=== PATIENT | male | born 1955 | race Caucasian/White ===

== ENCOUNTER 2022-02-18 08:54 | Observation (INO) | payer MEDICARE, BC ==
[2022-02-18 12:11] LABS: #Monocytes 0.5 10x3/uL (0.0-1.1); #Neutrophils 4.8 10x3/uL (1.5-8.4); %Basophils 0.6 % (0.0-2.0); %Eosinophils 0.6 % (0.0-6.0); %Lymphocytes 13.1 % (18.0-47.0); %Monocytes 8.3 % (0.0-10.0); %Neutrophils 77.1 % (40.0-75.0); Hemoglobin 16.1 g/dL (13.5-17.5); Mean Corpuscular HGB CONC 33.5 g/dL (32.0-36.0); Mean Corpuscular Volume 92.5 fl (81.2-95.1); Mean Platelet Volume 9.5 fl (7.4-10.4); Platelet Count 228 10x3/uL (150-450); RBC Distribution Width 13.7 % (11.5-14.5); Red Blood Cell (RBC) Count 5.19 10x6/uL (4.32-5.72); White Blood Cell (WBC) Count 6.3 10x3/uL (3.5-10.5)
[2022-02-18 12:18] LABS: Bilirubin Neg (Negative); Blood, Urine Negative (Negative); Clarity Clear (Clear); Glucose, Urine (Dipstick) >=1000 mg/dL (Negative); Ketone, Urine Negative (Negative); Leukocyte Negative (Negative); Nitrite Negative (Negative); Protein, Urine (Dipstick) Negative (Neg-Trace); Specific Gravity, Urine 1.005 (1.002-1.036); Urobilinogen Normal mg/dL (Less than 2)
[2022-02-18 12:19] LABS: INR-International Normal Ratio 0.9; Prothrombin Time 10.4 sec (9.5-12.1)
[2022-02-18 12:35] LABS: Anion Gap 15 mmol/L (10-20); BUN (Urea Nitrogen) 19 mg/dL (8.4-25.7); Calc. Creatinine Clearance 0 mL/min (70-130); Calcium 9.6 mg/dL (7.8-10.44); Carbon Dioxide 25 mmol/L (23-31); Chloride 104 mmol/L (98-107); Glucose 137 mg/dL (80-115); Potassium 5.2 mmol/L (3.5-5.1); Sodium 139 mmol/L (136-145)
[2022-02-18 14:52] VITALS: BMI 29.0
[2022-02-18 19:01] LABS: SARS-CoV-2 PCR by NAA Not Detected (NotDetected)
[2022-02-23] MEDS ORDERED: ceFAZolin (BATCH) 2 GM/100 ML BAG ONE (07:27)
[2022-02-23] MEDS ORDERED: Sodium Chloride 0.9% 100 ML ONE (07:35)
[2022-02-23] MEDS ORDERED: Tranexamic Acid 1,000 MG/10 ML VIAL ONE ×2 (07:35→11:49)
[2022-02-23] MEDS ORDERED: Vancomycin HCl 1.5 GM in Sodium Chloride 0.9% 250 ML 300 ML IVPB SCH ×2 (07:45→21:00)
[2022-02-23] MEDS ORDERED: Vancomycin 1.5 GRAM/300 ML BAG 1.5 GM in Premix Bag 1 BAG IVPB SCH (07:45)
[2022-02-23] MEDS ORDERED: Fentanyl 100 MCG/2 ML VIAL ONE ×3 (08:46→12:19)
[2022-02-23] MEDS ORDERED: Midazolam HCl 2 mg/2 ml Vial ONE (08:46)
[2022-02-23] MEDS ORDERED: Ropivacaine 0.5% HCl/PF (150 MG/30 ML VIAL) ONE ×2 (09:31→09:42)
[2022-02-23] MEDS ORDERED: Dexamethasone 20 MG/5 ML VIAL ONE (09:42)
[2022-02-23] MEDS ORDERED: ePHEDrine 50 MG/ML VIAL ONE (09:42)
[2022-02-23] MEDS ORDERED: Ondansetron PF 4 MG/2 ML Vial ONE (09:42)
[2022-02-23] MEDS ORDERED: PHENYLEPHRINE-NS 100 MCG/ML 10 ML SYRINGE ONE (09:42)
[2022-02-23] MEDS ORDERED: PROPOFOL 200 MG/20 ML VIAL ONE (09:42)
[2022-02-23] MEDS ORDERED: Lidocaine 1% PF 5 ML VIAL ONE (09:42)
[2022-02-23] MEDS ORDERED: Ketorolac Tromethamine 30 MG/ML VIAL ONE (09:42)
[2022-02-23] MEDS ORDERED: traMADol HCl 50 MG TAB PO PRN ×2 (09:45)
[2022-02-23] MEDS ORDERED: HYDROcodone/Acetaminophen 10/325 mg Tablet PO PRN (09:45)
[2022-02-23] MEDS ORDERED: Promethazine HCl 25 MG/ML VIAL IM PRN ×3 (09:45→11:53)
[2022-02-23] MEDS ORDERED: Ondansetron PF 4 MG/2 ML Vial IVP PRN ×2 (09:45→10:01)
[2022-02-23] MEDS ORDERED: Ropivacaine 0.2% 550 ML 550 ML NERVE BLCK SCH (09:45)
[2022-02-23] MEDS ORDERED: Zolpidem Tartrate 5 MG TAB PO PRN ×2 (09:45→10:01)
[2022-02-23] MEDS ORDERED: Fentanyl 100 MCG/2 ML VIAL SLOW IVP PRN (09:46)
[2022-02-23] MEDS ORDERED: Acetaminophen 325 MG TAB PO PRN (10:01)
[2022-02-23] MEDS ORDERED: diphenhydrAMINE 25 MG CAP PO PRN (10:01)
[2022-02-23] MEDS ORDERED: Tranexamic Acid 1,000 MG in Sodium Chloride 0.9% 100 ML IVPB SCH (10:15)
[2022-02-23] MEDS ORDERED: HYDROmorphone 2 MG/ML VIAL ONE (10:20)
[2022-02-23] MEDS ORDERED: Ondansetron HCl/PF 4 MG/2 ML Vial IVP PRN (11:53)
[2022-02-23] MEDS ORDERED: Promethazine HCl 25 MG/ML VIAL IVPB PRN (11:53)
[2022-02-23] MEDS: Sodium Chloride 0.9% 1,000 ML IV SCH ×2 (14:01→21:58)
[2022-02-23] MEDS: Ketorolac Tromethamine 30 MG/ML VIAL IVP SCH ×2 (14:32→20:43)
[2022-02-23] MEDS ORDERED: HumaLOG 300 UNITS/3 ML VIAL SC PRN (15:16)
[2022-02-23] MEDS ORDERED: Dextrose 5% in Water 1,000 ML IV PRN (15:16)
[2022-02-23] MEDS ORDERED: Ondansetron ODT 4 MG TAB PO PRN (15:16)
[2022-02-23] MEDS ORDERED: Dextrose 50% Abboject 50 ML SYRINGE SLOW IVP PRN (15:16)
[2022-02-23] MEDS ORDERED: Lorazepam 2 MG/ML VIAL IM PRN (15:16)
[2022-02-23] MEDS ORDERED: Lorazepam 1 MG TAB PO PRN (15:16)
[2022-02-23] MEDS ORDERED: Pseudoephedrine HCl 30 MG TAB PO PRN (15:20)
[2022-02-23] MEDS ORDERED: Polyethylene Glycol 3350 17 GM Packet PO PRN (15:23)
[2022-02-23] MEDS ORDERED: Docusate 100 MG CAP PO PRN (15:23)
[2022-02-23] MEDS ORDERED: Electrolyte Replacement Protocol 1 EACH FS PRN (15:30)
[2022-02-23] MEDS: Lorazepam 1 MG TAB PO SCH ×2 (17:09→21:59)
[2022-02-23] MEDS: CEFAZOLIN 2 GM, Admixture Fee 1 EACH in Sodium Chloride 0.9% 100 ML IVPB SCH (18:15)
[2022-02-23] MEDS: HYDROcodone/Acetaminophen 10/325 mg Tablet PO PRN (19:01)
[2022-02-23] MEDS: Senokot S 8.6-50 MG TAB PO SCH (20:43)
[2022-02-23] MEDS: Ferrous Gluconate 324 MG TAB PO SCH (20:43)
[2022-02-23] MEDS: Aspirin 81 mg Enteric Coated Tablet PO SCH (20:43)
[2022-02-24] MEDS: Ketorolac Tromethamine 30 MG/ML VIAL IVP SCH ×4 (00:09→12:00)
[2022-02-24] MEDS: CEFAZOLIN 2 GM, Admixture Fee 1 EACH in Sodium Chloride 0.9% 100 ML IVPB SCH (00:09)
[2022-02-24] MEDS: Lorazepam 1 MG TAB PO SCH (03:43)
[2022-02-24] MEDS: HYDROcodone/Acetaminophen 10/325 mg Tablet PO PRN ×3 (04:54→12:48)
[2022-02-24] MEDS: Sodium Chloride 0.9% 1,000 ML IV SCH (06:28)
[2022-02-24 06:31] LABS: Hemoglobin 12.3 g/dL (14.0-18.0); Mean Corpuscular HGB CONC 32.4 g/dL (32.0-36.0); Mean Corpuscular Hemoglobin 31.5 pg (27.0-31.0); Mean Corpuscular Volume 97.1 fL (78.0-98.0); Mean Platelet Volume 7.1 fL (7.4-10.4); Platelet Count 178 thou/uL (130-400); RBC Distribution Width 13.4 % (11.5-14.5); Red Blood Cell (RBC) Count 3.91 mill/uL (4.70-6.10)
[2022-02-24 06:50] LABS: Anion Gap 10 mmol/L (10-20); BUN (Urea Nitrogen) 14 mg/dL (8.4-25.7); Calc. Creatinine Clearance 115 mL/min (70-130); Calcium 7.7 mg/dL (7.8-10.44); Carbon Dioxide 24 mmol/L (23-31); Chloride 104 mmol/L (98-107); Glucose 151 mg/dL (80-115); Sodium 134 mmol/L (136-145)
[2022-02-24] MEDS: Senokot S 8.6-50 MG TAB PO SCH (08:24)
[2022-02-24] MEDS: Ferrous Gluconate 324 MG TAB PO SCH (08:25)
[2022-02-24] MEDS: Aspirin 81 mg Enteric Coated Tablet PO SCH (08:25)
[2022-02-24] MEDS ORDERED: Empagliflozin 10 MG TAB PO SCH (09:00)
[2022-02-24] MEDS ORDERED: Folic Acid 1 MG TAB PO SCH (09:00)
[2022-02-24] MEDS ORDERED: Multivit, Therapeutic 1 TAB PO SCH (09:00)
[2022-02-24] MEDS ORDERED: Multivitamin W/ Minerals 1 TAB PO SCH (09:00)
[2022-02-24 11:14] VITALS: BP 122/70; TEMP 98.9
[2022-02-24] MEDS ORDERED: Lorazepam 1 MG TAB PO PRN (15:17)
[2022-02-24] MEDS ORDERED: Atorvastatin Calcium 20 MG TAB PO SCH (21:00)
[2022-02-25] MEDS ORDERED: Lorazepam 1 MG TAB PO PRN (15:17)
[2022-02-25] MEDS ORDERED: Lorazepam 0.5 MG TAB PO SCH (15:30)
[2022-02-26] MEDS ORDERED: Lorazepam 0.5 MG TAB PO PRN (15:17)
[2022-02-26] MEDS ORDERED: Thiamine 100 MG TAB PO SCH (16:00)
== END 2022-02-24 14:00 | disposition home or self-care (01) ==
LOC: INTOOBSV 02-23 06:40 → SURG A 02-23 06:40 → SJJU 02-23 13:08
PROVIDERS: ADMIT Orthopaedic Surgery; ATTEND Orthopaedic Surgery
PROC: 0SRC0J9 Replacement of Right Knee Joint with Synthetic Substitute, Cemented, Open Approach (ICD-10-PCS; principal; 2022-02-23)
PROC: 8E0YXBZ Computer Assisted Procedure of Lower Extremity (ICD-10-PCS; 2022-02-23)
PROC: 3E0T3BZ Introduction of Anesthetic Agent into Peripheral Nerves and Plexi, Percutaneous Approach (ICD-10-PCS; 2022-02-23)
DX: M17.11 Unilateral primary osteoarthritis, right knee (principal); M25.562 Pain in left knee; E11.9 Type 2 diabetes mellitus without complications; E87.5 Hyperkalemia; K21.9 Gastro-esophageal reflux disease without esophagitis; Z85.46 Personal history of malignant neoplasm of prostate; Z79.84 Long term (current) use of oral hypoglycemic drugs; Z79.899 Other long term (current) drug therapy; Z20.822 Contact with and (suspected) exposure to COVID-19
CPT/HCPCS: 20985; 27447; 64448; 80048; 82962 ×2; 83036; 85027; 96374; 97110 ×2; 97116; 97530 ×2; A4306; C1713; C1776; G0378; 36415; 36416; 81003; 85025; 85610; 86850; 86900; 86901; 87081; J0690; J1100; J1170; J1885; J2250; J2405; J2704; J2795; J3010; J3370; J3490; J7050; U0003; U0005

== ENCOUNTER 2025-08-16 14:08 | Outpatient (CLI) | payer MEDICARE, BC ==
[2025-08-16] MEDS ORDERED: Iopamidol 370 76% 100 ML VIAL ONE (14:17)
[2025-08-16 15:07] LABS: Estimated GFR - POC 71.0
== END 2025-08-16 14:09 | disposition home or self-care (01) ==
LOC: CT 14:08
PROVIDERS: ATTEND Internal Medicine Gastroenterology
DX: I82.890 Acute embolism and thrombosis of other specified veins (principal); I70.0 Atherosclerosis of aorta; I70.8 Atherosclerosis of other arteries; I77.1 Stricture of artery; D73.89 Other diseases of spleen; D18.03 Hemangioma of intra-abdominal structures; N28.1 Cyst of kidney, acquired; K57.30 Diverticulosis of large intestine without perforation or abscess without bleeding; K59.00 Constipation, unspecified; K44.9 Diaphragmatic hernia without obstruction or gangrene; Z90.49 Acquired absence of other specified parts of digestive tract
CPT/HCPCS: 36415; 74174; 82565; Q9967

== ENCOUNTER 2025-09-04 08:00 | Outpatient (CLI) | payer MEDICARE, BC | END 2025-09-04 08:01 | disposition home or self-care (01) | LOC: PET 08:00 | PROVIDERS: ATTEND Urology | DX: C61 Malignant neoplasm of prostate (principal) | CPT/HCPCS: 78815; A9595 ==